=== PATIENT | female | born 1975 | race Caucasian/White ===

== ENCOUNTER 2017-02-13 16:14 | Emergency (ER) | payer OTHER ==
[~2017-02-13] VITALS: Ht 175.3 cm; Wt 137.0 kg
[2017-02-13 16:20] VITALS: BP 170/82; PULSE 73; RESP 16; TEMP 97.8; O2SAT 100
--- NOTE | 2017-02-13 16:57 | PD ---
HPI Chief Complaint: Eye Problems/Injury Time Seen by Provider: 16:40 Travel History International Travel<30 days: No Contact w/Intl Traveler<30days: No Traveled to known affect area: No History of Present Illness HPI 41-year-old female presents to the emergency room from urgent care for evaluation of right eye pain, swelling after injury 2 days ago. Patient was using a crank in her camper when it popped off and struck her in the face. She took an Advil at night but has not taken anything since. Patient went to [facility] today because she noticed increasing difficulty reading computer screens because of tearing in the right eye. She also noticed increased pain when looking to her right. They recommended she come to the emergency room for CT scan. She denies loss of consciousness, nausea, vomiting, altered mental status, confusion, dizziness. No chronic medical conditions. FORMERLY [facility], [facility]–1983 Past Medical History Medical History: Denies Significant Hx Influenza Vaccination: No ?: Not LMP: 01/31/17 Social History Alcohol Use: Yes (couple times per month) Tobacco Use: No Substance Use: No Allergies-Medications (Allergen,Severity, Reaction): Coded Allergies: No Known Allergies (Unverified , 02/13/17) Reported Meds & Prescriptions Reported Meds & Active Scripts Active No Active Prescriptions or Reported Medications Review of Systems Except as stated in HPI: all other systems reviewed are Neg Physical Exam Narrative GENERAL: Well-nourished, well-developed female in no acute distress. Afebrile. Ambulatory. SKIN: Focused skin assessment warm/dry. There is moderate periorbital ecchymosis and edema of the right eye. HEAD: Normocephalic. EYES: No scleral icterus. No injection or drainage. Visual acuity 20/20 bilaterally. NECK: Supple, trachea midline. No JVD or lymphadenopathy. CARDIOVASCULAR: Regular rate and rhythm without murmurs, gallops, or rubs. RESPIRATORY: Breath sounds equal bilaterally. No accessory muscle use. NEUROLOGICAL: Awake and alert. Cranial nerves II through XII intact. Motor and sensory grossly within normal limits. Five out of 5 muscle strength in all muscle groups. Normal speech. Data Data Last Documented VS Vital Signs Date Time Temp Pulse Resp B/P Pulse Ox O2 Delivery O2 Flow Rate FiO2 02/13/17 16:20 97.8 73 16 170/[address] Brain W/O Iv Contrast(Rout) (02/13/17 ) Ct Facial Bones W/O Iv Cont (02/13/17 ) MDM Medical Decision Making Medical Screen Exam Complete: Yes Emergency Medical Condition: Yes Medical Record Reviewed: Yes Differential Diagnosis Fracture, contusion, periorbital ecchymosis, intracranial hemorrhage Narrative Course 41-year-old female presents to the emergency room for evaluation of right lateral eye pain and swelling after injuring it 2 days ago. Patient struck her head with a metal item accidentally. Denies loss of consciousness. No focal neurological deficits. Physical exam reveals moderate periorbital ecchymosis and edema of the right eye. Eye is unaffected; visual acuity is 20/20. EOMI with mild pain when she looks to the right. CT of the head is negative. CT facial bones shows a possible, very small nondisplaced fracture of the superior lateral orbital rim. Patient was given copy of her x-ray report and told to follow-up with a primary care physician. Told to return to the emergency room for worsening symptoms. She understands and agrees to plan. Diagnosis Primary Impression: Fracture of lateral wall of orbit Qualified Code: S02.80XA - Closed fracture of lateral wall of orbit, initial encounter Referrals: Primary Care Physician Patient Instructions: Facial Fracture (ED), General Instructions Additional Instructions: Rest and drink plenty of fluids. Take ibuprofen with food as directed, as needed for pain. Apply ice to the affected area for 20 minutes at a time, as needed for pain and swelling. Follow-up with a primary care physician. Return to the emergency room for worsening symptoms. Scripts No Active Prescriptions or Reported Meds Disposition: 01 DISCHARGE HOME Condition: Stable Deb Ruano Feb 13, 2017 16:57
--- NOTE | 2017-02-13 17:50 | RADRPT ---
EXAM DATE/TIME: 02/13/2017 17:38 [facility] COMPARISON: No previous studies available for comparison. INDICATIONS : Hit on right frontal area with a camper handle. RADIATION DOSE: 63.10 CTDIvol (mGy) MEDICAL HISTORY : None SURGICAL HISTORY : None. ENCOUNTER: Initial ACUITY: 3 days PAIN SCALE: 6/10 LOCATION: Right frontal TECHNIQUE: Multiple contiguous axial images were obtained of the head. Using automated exposure control and adj ustment of the mA and/or kV according to patient size, radiation dose was kept as low as reasonably a chievable to obtain optimal diagnostic quality images. DICOM format image data is available electro nically for review and comparison. FINDINGS: CEREBRUM: The ventricles are normal for age. No evidence of midline shift, mass lesion, hemorrhage or acute in farction. No extra-axial fluid collections are seen. POSTERIOR FOSSA: The cerebellum and brainstem are intact. The 4th ventricle is midline. The cerebellopontine angle i s unremarkable. EXTRACRANIAL: The visualized portion of the orbits is intact. SKULL: The calvaria is intact. No evidence of skull fracture. CONCLUSION: No acute intracranial findings. Akira Robin MD on February 13, 2017 at 17:46 Board Certified Radiologist. This report was verified electronically.
--- NOTE | 2017-02-13 18:08 | RADRPT ---
EXAM DATE/TIME: 02/13/2017 17:38 [facility] COMPARISON: No previous studies available for comparison. INDICATIONS : Hit on right frontal area with a camper handle. Right orbital soft tissue swelling. RADIATION DOSE: 34.93 CTDIvol (mGy) MEDICAL HISTORY : None SURGICAL HISTORY : None. ENCOUNTER: Initial ACUITY: 1 day PAIN SCORE: 5/10 LOCATION: Right facial TECHNIQUE: Volumetric scanning of the facial bones was performed. Using automated exposure control and adjustme nt of the mA and/or kV according to patient size, radiation dose was kept as low as reasonably achiev able to obtain optimal diagnostic quality images. DICOM format image data is available electronicall y for review and comparison. FINDINGS: ORBITS: Right preorbital soft tissue swelling. There is a 4 mm nondisplaced linear lucency at the superior la teral aspect of the right orbital rim on the axial images only. This is immediately adjacent to the s uture but is asymmetric when compared to the contralateral side. Globes are intact. Extraocular muscl es symmetric. NASAL BONE: The nasal bone and maxillary spine are intact ZYGOMATIC ARCHES: Symmetric without evidence of fracture. SINUSES: Mild mucosal thickening at the inferior aspects of the maxillary sinuses bilaterally. NASAL CAVITY: The nasal septum is intact. The lacrimal ducts are intact. INTRACRANIAL: No intracranial air seen. CONCLUSION: 1. Possible very small nondisplaced fracture of the superior lateral orbital rim on the right. There is adjacent preorbital soft tissue swelling in this region. No other fracture identified. 2. Minimal bilateral maxillary sinus disease. Akira Robin MD on February 13, 2017 at 18:00 Board Certified Radiologist. This report was verified electronically.
== END 2017-02-13 18:30 | disposition home or self-care (01) ==
LOC: PHEFT 16:14
DX: S02.81XA Fracture of other specified skull and facial bones, right side, initial encounter for closed fracture (principal); W22.8XXA Striking against or struck by other objects, initial encounter
CPT/HCPCS: 70450; 70486; 99284